=== PATIENT | male | born 2000 | race Caucasian/White ===

== ENCOUNTER 2019-08-01 11:38 | Emergency (ER) | payer SELFPAY ==
[2019-08-01 11:46] VITALS: BP 115/49
[2019-08-01] MEDS ORDERED: IBUPROFEN 800 MG TABLET PO ONE (11:58)
--- NOTE | 2019-08-01 12:02 | ER Document Report ---
HPI - HPI Patient complains to provider of: Cough fever body aches Time Seen by Provider: 08/01/19 11:56 Onset: Other - 3 days Onset/Duration: Persistent Quality of pain: Achy Pain Level: 1 Context: 18-year-old male who is relatively healthy presents today with complaints of cough body aches fever for the last 3 days. Reports it started off with cough he reports the cough is better now. He did not receive a flu vaccine. Denies abdominal pain, vomiting, diarrhea. He has not taken Tylenol or Motrin for the his fever. Associated Symptoms: Body/muscle aches, Nonproductive cough, Fever Exacerbated by: Denies Relieved by: Denies Similar symptoms previously: No Recently seen / treated by doctor: No Past Medical History - General Information source: Patient - Social History Smoking Status: Former Smoker Cigarette use (# per day): No Frequency of alcohol use: None Drug Abuse: None Lives with: Family Family History: None Patient has suicidal ideation: No Patient has homicidal ideation: No - Medical History Medical History: Negative Surgical Hx: Negative Vertical Provider Document - CONSTITUTIONAL Agree With Documented VS: Yes Exam Limitations: No Limitations General Appearance: WD/WN, No Apparent Distress - Nontoxic looking smiles laughs easily - HEENT HEENT: Atraumatic, Normal ENT Exam, Normocephalic, PERRLA. negative: Conjucti kieran Injection, Pharyngeal Erythema, Tympanic Membrane Red - NECK Neck: Normal Inspection, Supple. negative: Lymphadenopathy-Left, Lymphadenopathy-Right - RESPIRATORY Respiratory: Breath Sounds Normal, No Respiratory Distress. negative: Rhonchi, Wheezing - CARDIOVASCULAR Cardiovascular: Regular Rhythm, Tachycardia - GI/ABDOMEN Gastrointestinal: Abdomen Soft, Abdomen Non-Tender - BACK Back: Normal Inspection - MUSCULOSKELETAL/EXTREMETIES Musculoskeletal/Extremeties: MAEW, FROM - NEURO Level of Consciousness: Awake, Alert, Appropriate Motor/Sensory: No Motor Deficit - DERM Integumentary: Warm, Dry, No Rash Course - Re-evaluation Re-evalutation: 08/01/19 12:02 Patient presents with fever cough body aches for the past 3 days. Temperature was 103 with a heart rate of 135 upon arrival. Patient was treated with Motrin fluids, chest x-ray and flu test ordered. 08/01/19 13:46 Flu test negative chest x-ray negative. Patient's fluids feels better Patient heart rate decreased, he's drinking po fluids.. Temperature is within normal limits. Patient reports he feels better. Instructed on negative chest negative flu test. Instructed on importance of monitoring his temperature push fluids return for concerns. He verbalized understanding to all instructions. Chest X-Ray 08/01/19 11:59 IMPRESSION: NO ACUTE RADIOGRAPHIC FINDING IN THE CHEST. - Vital Signs Vital signs: Temp Pulse Resp BP Pulse Ox 102.5 F H 133 H 16 115/49 L 97 08/01/19 11:45 08/01/19 11:45 08/01/19 11:45 08/01/19 11:45 08/01/19 11:45 - Diagnostic Test Radiology reviewed: Image reviewed, Reports reviewed Discharge - Discharge Clinical Impression: Cough Fever Qualifiers: Fever type: unspecified Qualified Code(s): R50.9 - Fever, unspecified Condition: Stable Disposition: HOME, SELF-CARE Instructions: Acetaminophen Additional Instructions: *You have been evaluated for a cough, fever *Increase fluids, handwashing *Monitor your temperature, take Tylenol as indicated *Follow up with a primary care provider within 1 week for recheck *Return to ED for increasing fever, worsening cough cough, worsening condition, changes, needs, concerns Forms: Return to Work
[2019-08-01 12:34] LABS: A TYPE INFLUENZA AG NEGATIVE (NEGATIVE)
[2019-08-01 12:35] LABS: B INFLUENZA AG NEGATIVE (NEGATIVE)
--- NOTE | 2019-08-01 13:40 | RADIOLOGY REPORT (SQ) ---
EXAM DESCRIPTION: CHEST 2 VIEWS COMPLETED DATE/TIME: 08/01/2019 12:34 pm REASON FOR STUDY: cough fever COMPARISON: None. EXAM PARAMETERS: NUMBER OF VIEWS: two views TECHNIQUE: Digital Frontal and Lateral radiographic views of the chest acquired. RADIATION DOSE: NA LIMITATIONS: none FINDINGS: LUNGS AND PLEURA: No opacities, masses or pneumothorax. No pleural effusion. MEDIASTINUM AND HILAR STRUCTURES: No masses or contour abnormalities. HEART AND VASCULAR STRUCTURES: Heart normal size. No evidence for failure. BONES: No acute findings. HARDWARE: None in the chest. OTHER: No other significant finding. IMPRESSION: NO ACUTE RADIOGRAPHIC FINDING IN THE CHEST. TECHNICAL DOCUMENTATION: JOB ID: [id number] [employer]- All Rights Reserved Reading location - IP/workstation name: [email or web address]
== END 2019-08-01 14:15 | disposition home or self-care (01) ==
LOC: ER 11:38
DX: R05 Cough (principal); R50.9 Fever, unspecified; M79.10 Myalgia, unspecified site; R00.0 Tachycardia, unspecified; Z87.891 Personal history of nicotine dependence
CPT/HCPCS: 71046; 87804; 99283